=== PATIENT | male | born 1945 | race African-American/Black ===

== ENCOUNTER 2016-10-18 09:35 | Emergency (ER) | payer MEDICARE, MEDICAID ==
[~2016-10-18] VITALS: Ht 167.6 cm; Wt 75.0 kg
[~2016-10-18 09:35] MED LIST: AMLO5TAB4 PO; ATOR10TA PO; Aspirin PO; Metoprolol Tartrate PO; NO HOME MEDS
[2016-10-18] MEDS ORDERED: AMLODIPINE 5MG TABLET PO ONE (14:15)
[2016-10-18] MEDS ORDERED: KETOROLAC 30MG/ML VIAL IV STA (16:06)
[2016-10-18] MEDS ORDERED: SODIUM CHLORIDE 0.9% 1,000 ML IV ONE (16:06)
[2016-10-18 16:48] LABS: CHLORIDE 100 mEq/L (98-107)
[2016-10-18 16:50] LABS: PROTHROMBIN TIME 10.9 sec
[2016-10-18 16:52] LABS: BASOPHILS % 0.5 % (0.0-2.0); EOSINOPHILS % 0.1 % (0.0-5.0); HEMATOCRIT. 39.8 % (42.0-52.0); HEMOGLOBIN. 13.4 g/dL (14.0-18.0); LYMPHOCYTES % 38.4 % (20.0-50.0); MEAN CORPUSCULAR HEMOGLOBIN 28.6 pg (28.0-32.0); MEAN CORPUSCULAR VOLUME 85.1 fL (80.0-94.0); MEAN PLATELET VOLUME 8.3 fl (7.4-10.4); MONOCYTES % 6.3 % (2.0-8.0); NEUTROPHILS % 54.7 % (40.0-76.0); PLATELET 189 x1000/uL (130-400); RED BLOOD CELL COUNT 4.67 mill/uL (4.7-6.1)
[2016-10-18 16:57] LABS: CARBON DIOXIDE 31 mEq/L (21-32)
[2016-10-18 17:32] LABS: CLARITY URINE CLEAR (CLEAR); COLOR URINE YELLOW (YELLOW); GLUCOSE URINE NEGATIVE (NEGATIVE); KETONES URINE 1+ (NEGATIVE); LEUKOCYTE ESTERASE URINE NEGATIVE (NEGATIVE); NITRITE URINE NEGATIVE (NEGATIVE); OCCULT BLOOD URINE 1+ (NEGATIVE); PH URINE 6.5 (4.5-8.0); PROTEIN URINE TRACE (NEGATIVE); SPECIFIC GRAVITY URINE 1.022 (1.005-1.030); UROBILINOGEN URINE 0.2 E.U./dL (0.2-1.0)
[2016-10-18] MEDS ORDERED: CLONIDINE 0.1MG TABLET PO ONE (18:30)
[2016-10-19 01:09] VITALS: BP 130/72
== END 2016-10-19 01:50 | disposition home or self-care (01) ==
LOC: ER 14:23
DX: R10.12 Left upper quadrant pain (principal); I10 Essential (primary) hypertension
CPT/HCPCS: 36415; 80053; 81001; 83690; 85025; 85610; 96361; 96374; 99285; J1885; J7030

== ENCOUNTER 2017-08-24 20:47 | Emergency (ER) | payer MEDICAID, MEDICARE ==
[~2017-08-24] VITALS: Ht 170.2 cm; Wt 54.3 kg
[2017-08-24 22:49] LABS: BASOPHILS % 0.7 % (0.0-2.0); EOSINOPHILS % 0.9 % (0.0-5.0); HEMATOCRIT. 36.6 % (42.0-52.0); HEMOGLOBIN. 12.5 g/dL (14.0-18.0); LYMPHOCYTES % 37.1 % (20.0-50.0); MEAN CORPUSCULAR HEMOGLOBIN 29.4 pg (28.0-32.0); MEAN CORPUSCULAR VOLUME 86.5 fL (80.0-94.0); MEAN PLATELET VOLUME 8.2 fl (7.4-10.4); MONOCYTES % 6.9 % (2.0-8.0); NEUTROPHILS % 54.4 % (40.0-76.0); PLATELET 186 x1000/uL (130-400); RED BLOOD CELL COUNT 4.23 mill/uL (4.7-6.1); RED CELL DISTRIBUTION WIDTH 14.6 % (11.6-14.6)
[2017-08-24 22:54] LABS: CHLORIDE 101 mEq/L (98-107)
[2017-08-24 22:56] LABS: INR 1.1; PROTHROMBIN TIME 10.9 sec (9.4-11.6)
[2017-08-24] MEDS ORDERED: HYDRALAZINE 20MG/ML VIAL IV NR (23:30)
[2017-08-24 23:44] LABS: CLARITY URINE CLEAR (CLEAR); COLOR URINE YELLOW (YELLOW); KETONES URINE NEGATIVE (NEGATIVE); LEUKOCYTE ESTERASE URINE NEGATIVE (NEGATIVE); NITRITE URINE NEGATIVE (NEGATIVE); OCCULT BLOOD URINE 1+ (NEGATIVE); PROTEIN URINE NEGATIVE (NEGATIVE); SPECIFIC GRAVITY URINE 1.013 (1.005-1.030)
[2017-08-25 08:30] VITALS: BP 216/97
== END 2017-08-25 08:45 | disposition home or self-care (01) ==
LOC: ER 20:51 → CANBEDREQ 08-25 01:39 → ER 08-25 08:45
DX: I10 Essential (primary) hypertension (principal); R42 Dizziness and giddiness; R31.9 Hematuria, unspecified; D64.9 Anemia, unspecified
CPT/HCPCS: 36415; 71045; 80053; 81003; 83605; 85025; 85610; 87040; 87086; 93005; 96374; 99285; J0360